=== PATIENT | female | born 1965 | race Caucasian/White ===

== ENCOUNTER → 2016-08-12 | Outpatient (CLI) | payer OTHER ==
[~2016-08-12] MED LIST: ADV250INH INH; BUTA50TA PO; CALC600T21 PO; COLA100C PO; FIORCAP3 PO; GASTROGRAFIN SOLUTION 30ML (Q9963) As Ordered ONE; ISOVUE-370 76% 100ML VIAL (Q9967) As Ordered ONE; LEVO50TA2 PO; NAPR500T2 PO; RECL5INJ2 IV; TOPI50TA PO; TYLE325T5 PO; VALI2TAB PO; VITA10002 PO; VITA200016 PO; alendronate PO; antivert PO; calcium PO; depo-provera IM; motrin PO; vicodin PO; vit; vit c PO; vitamin B-12 PO
--- NOTE | 2016-08-12 10:42 | REP ---
Clinical: Abdominal pain with inflammatory bowel disease. Technique: Axial contrast enhanced images from the lung bases to the pubic symphysis using oral and 100 ml Isovue 370 intravenous contrast material with precontrast images of the abdomen as well as coronal and sagittal re-formations. Comparison: 04/30/2014. Findings: Lung bases clear. Visualized heart and pericardium normal. Liver, spleen, pancreas, gallbladder, bilateral adrenal glands and kidneys are normal. The enteric system is grossly unremarkable and without obstruction or acute inflammatory process. Normal terminal ileum and appendix identified in the right lower quadrant. Pelvis demonstrates normal bladder and evidence for prior hysterectomy. Pelvic fluid or ascites. No intraperitoneal or retroperitoneal adenopathy. Abdominal aorta without aneurysm or dissection. Surrounding musculoskeletal structures are intact. Impression: No acute intra-abdominal or pelvic pathology appreciated. Signed by Rishi Shabazz MD 08/12/2016 10:34 A
== END ==
LOC: M RAD 07:59
PROVIDERS: ATTEND Physician Assistant Medical
DX: K58.9 Irritable bowel syndrome, unspecified (principal)

== ENCOUNTER → 2016-09-23 | Outpatient (CLI) | payer OTHER ==
[~2016-09-23] MED LIST changes: -GASTROGRAFIN SOLUTION 30ML (Q9963) As Ordered ONE; -ISOVUE-370 76% 100ML VIAL (Q9967) As Ordered ONE
[2016-09-23 13:42] LABS: BASO % 0.4 % (0.0-1.0); EOS # 0.2 K/mm3 (0.0-0.50); EOS % 3.8 % (0.0-3.0); LARGE UNSTAINED CELL # 0.1 K/mm3 (0.0-0.4); LARGE UNSTAINED CELL % 1.4 % (0.0-4.0); LYMPH # 1.8 K/mm3 (1.5-4.5); LYMPH % 39.4 % (24.0-44.0); MEAN CORPUSCULAR HEMOGLOBIN 31.6 pg (27.0-33.0); MEAN CORPUSCULAR VOLUME 92.9 fl (80.0-96.0); MONO # 0.3 K/mm3 (0.0-0.8); NEUTROPHILS # 2.2 K/mm3 (1.8-7.7); PLATELET COUNT, AUTOMATED 245 k/mm3 (150-450); RED CELL DISTRIBUTION WIDTH 12.2 % (11.5-14.5); WHITE BLOOD COUNT 4.4 K/mm3 (4.0-10.0)
[2016-09-23 13:52] LABS: ALBUMIN/GLOBULIN RATIO 1.43 (1.00-1.93); ALKALINE PHOSPHATASE 60 U/L (45-117); ALT/SGPT 24 U/L (12-78); ANION GAP 10 MEQ/L (8-16); AST/SGOT 17 U/L (15-37); BILIRUBIN,TOTAL 0.4 MG/DL (0.2-1.0); BLOOD UREA NITROGEN 13 MG/DL (7-18); CALCIUM LEVEL 8.8 MG/DL (8.5-10.1); CARBON DIOXIDE LEVEL 29 MEQ/L (21-32); CHLORIDE LEVEL 105 MEQ/L (98-107); CREATININE FOR GFR 0.67 MG/DL (0.55-1.02); FERRITIN 321 NG/ML (8-252); GLOMERULAR FILTRATION RATE > 60.0 (>51); GLUCOSE, FASTING 95 MG/DL (70-105); PERCENT SATURATION 37.8 % (13.2-37.4); POTASSIUM SERUM 4.2 MEQ/L (3.5-5.1); SODIUM LEVEL 144 MEQ/L (136-145); TOTAL IRON BINDING CAPACITY 294 UG/DL (250-450); TOTAL PROTEIN 6.8 GM/DL (6.4-8.2)
[2016-09-23 13:59] LABS: VITAMIN B12 LEVEL 740 PG/ML (247-911)
[2016-09-26 11:18] LABS: PRETREATED FOLATE FOR RBCFOL 8.5 NG/ML
== END ==
LOC: M WUC 11:38
PROVIDERS: ATTEND Family Medicine
DX: D51.9 Vitamin B12 deficiency anemia, unspecified (principal); E55.9 Vitamin D deficiency, unspecified

== ENCOUNTER 2016-11-02 07:39 | Emergency (ER) | payer OTHER ==
[~2016-11-02] VITALS: Ht 154.9 cm; Wt 47.2 kg
[~2016-11-02 07:39] MED LIST changes: -COLA100C PO; +COLA100C3 PO
[2016-11-02] MEDS ORDERED: SODIUM CHLORIDE 0.9% 1000 ML IV ONE (08:15)
[2016-11-02] MEDS ORDERED: ONDANSETRON 4MG/2ML VIAL (J2405) IV ONE (08:15)
[2016-11-02] MEDS ORDERED: MORPHINE 2 MG/ML 1ML SYRINGE IV PRN (08:15)
[2016-11-02 08:25] LABS: BASO % 0.7 % (0.0-1.0); EOS # 0.2 K/mm3 (0.0-0.50); EOS % 3.9 % (0.0-3.0); LARGE UNSTAINED CELL # 0.1 K/mm3 (0.0-0.4); LARGE UNSTAINED CELL % 2.4 % (0.0-4.0); LYMPH # 1.8 K/mm3 (1.5-4.5); LYMPH % 45.7 % (24.0-44.0); MEAN CORPUSCULAR HGB CONC 33.7 g/dl (32.0-36.5); MONO # 0.2 K/mm3 (0.0-0.8); MONO % 4.4 % (0.0-5.0); NEUTROPHILS # 1.7 K/mm3 (1.8-7.7); NEUTROPHILS % 42.9 % (36.0-66.0); PLATELET COUNT, AUTOMATED 263 k/mm3 (150-450); RED CELL DISTRIBUTION WIDTH 12.4 % (11.5-14.5); WHITE BLOOD COUNT 3.8 K/mm3 (4.0-10.0)
[2016-11-02 08:43] LABS: ALBUMIN/GLOBULIN RATIO 1.25 (1.00-1.93); ALKALINE PHOSPHATASE 54 U/L (45-117); ALT/SGPT 28 U/L (12-78); AMYLASE 66 U/L (25-115); ANION GAP 5 MEQ/L (8-16); AST/SGOT 20 U/L (15-37); BILIRUBIN,DIRECT 0.1 MG/DL (0.0-0.2); BILIRUBIN,TOTAL 0.5 MG/DL (0.2-1.0); BLOOD UREA NITROGEN 18 MG/DL (7-18); CALCIUM LEVEL 8.7 MG/DL (8.5-10.1); CARBON DIOXIDE LEVEL 30 MEQ/L (21-32); CHLORIDE LEVEL 108 MEQ/L (98-107); GLOMERULAR FILTRATION RATE > 60.0 (>51); GLUCOSE, FASTING 86 MG/DL (70-105); POTASSIUM SERUM 3.8 MEQ/L (3.5-5.1); SODIUM LEVEL 143 MEQ/L (136-145); TOTAL PROTEIN 7.2 GM/DL (6.4-8.2)
[2016-11-02] MEDS ORDERED: METOCLOPRAMIDE INJ 10MG/2ML VIAL (J2765) IV ONE (09:00)
[2016-11-02] MEDS ORDERED: ISOVUE-370 76% 100ML VIAL (Q9967) As Ordered ONE (09:26)
--- NOTE | 2016-11-02 09:55 | REP ---
Clinical: Acute abdominal pain. Technique: Axial contrast enhanced images from the lung bases to the pubic symphysis using 100 ml Isovue 370 intravenous contrast material with coronal and sagittal re-formations. Comparison: 08/12/2016. Findings: Lung bases clear. Visualized heart and pericardium normal. Liver, spleen, pancreas, gallbladder, bilateral adrenal glands and kidneys are normal the enteric system is without obstruction or acute inflammatory process pelvis demonstrates normal bladder and evidence for prior hysterectomy no free air. No free fluid. No adenopathy. Vasculature is normal. Musculoskeletal structures are intact. Impression: No acute intra-abdominal or pelvic pathology appreciated. Signed by Rishi Shabazz MD 11/02/2016 09:47 A
[2016-11-02] MEDS ORDERED: DICYCLOMINE INJ 20MG/2ML (J0500) IM ONE (10:30)
[2016-11-02 11:18] VITALS: BP 102/55
--- NOTE | 2016-11-03 21:21 | ECGEPIP ---
Stationary ECG Study [facility] - ED Test Date: 2016-11-02 Pat Name: ROBERT SOSA Department: Room: - Gender: F [employer]ovoltaic Panel Installer: lizeth : 1965 Requested By: Edwina Nuno Order Number: [id number] Reading MD: Edwina Nuno Measurements Intervals [place] Rate: 63 P: 68 TN: 145 QRS: 42 QRSD: 73 T: 67 QT: 395 QTc: 405 Interpretive Statements SINUS RHYTHM MINIMAL ST DEPRESSION LOW VOLTAGE LIMB DELAYED R PROGRESSION SIMILAR 06/08/15 Electronically Signed On 11-03-2016 21:21:11 EDT by Edwina Nuno
== END 2016-11-02 11:20 | disposition home or self-care (01) ==
LOC: M ED 08:27
DX: R10.9 Unspecified abdominal pain (principal); K58.9 Irritable bowel syndrome, unspecified; Z90.79 Acquired absence of other genital organ(s); Z88.8 Allergy status to other drugs, medicaments and biological substances
CPT/HCPCS: 74177; 80048; 80076; 82150; 83690; 85025; 93005; 96372; 96374; 96375; 99283; J0500; J2405; J2765; Q9967

== ENCOUNTER 2016-11-18 07:49 | Outpatient (CLI) | payer OTHER ==
[~2016-11-18] VITALS: Ht 154.9 cm; Wt 47.2 kg
[2016-11-18] MEDS ORDERED: ZOLEDRONIC ACID 5 MG in APPROPRIATE DILUENT 1 EA IV ONE (08:00)
[2016-11-18] MEDS ORDERED: BENT10CA PO (10:42)
== END 2016-11-18 08:40 | disposition home or self-care (01) ==
LOC: M INFU 07:49
PROVIDERS: ATTEND Family Medicine
DX: M85.80 Other specified disorders of bone density and structure, unspecified site (principal)
CPT/HCPCS: 96365; J3489

== ENCOUNTER → 2016-12-30 | Outpatient (REF) | payer OTHER ==
[~2016-12-30] MED LIST changes: +BENT10CA PO
== END ==
LOC: M LAB REF 16:13
PROVIDERS: ATTEND Physician Assistant
DX: J02.9 Acute pharyngitis, unspecified (principal)

== ENCOUNTER → 2017-02-09 | Outpatient (CLI) | payer OTHER ==
[~2017-02-09] MED LIST changes: -CALC600T21 PO; +CALC600T60 PO; -COLA100C3 PO; +COLA100C5 PO; -NAPR500T2 PO; +NAPR500T3 PO
[2017-02-09 08:11] LABS: BASO % 0.8 % (0.0-1.0); EOS # 0.1 K/mm3 (0.0-0.50); EOS % 2.6 % (0.0-3.0); LARGE UNSTAINED CELL # 0.1 K/mm3 (0.0-0.4); LARGE UNSTAINED CELL % 1.6 % (0.0-4.0); LYMPH # 1.8 K/mm3 (1.5-4.5); LYMPH % 41.9 % (24.0-44.0); MEAN CORPUSCULAR HEMOGLOBIN 29.9 pg (27.0-33.0); MEAN CORPUSCULAR HGB CONC 32.6 g/dl (32.0-36.5); MEAN CORPUSCULAR VOLUME 91.7 fl (80.0-96.0); MONO # 0.3 K/mm3 (0.0-0.8); MONO % 6.9 % (0.0-5.0); NEUTROPHILS # 1.9 K/mm3 (1.8-7.7); NEUTROPHILS % 46.2 % (36.0-66.0); PLATELET COUNT, AUTOMATED 245 k/mm3 (150-450); RED CELL DISTRIBUTION WIDTH 12.5 % (11.5-14.5); WHITE BLOOD COUNT 4.2 K/mm3 (4.0-10.0)
[2017-02-09 08:40] LABS: FREE T4 0.87 NG/DL (0.76-1.46)
== END ==
LOC: M LAB 07:16
PROVIDERS: ATTEND Family Medicine
DX: D51.9 Vitamin B12 deficiency anemia, unspecified (principal); E03.9 Hypothyroidism, unspecified

== ENCOUNTER → 2017-07-29 | Outpatient (CLI) | payer OTHER ==
[2017-07-29 14:58] LABS: VITAMIN B12 LEVEL 721 PG/ML
[2017-07-29 14:59] LABS: FREE T4 0.91 NG/DL (0.76-1.46)
== END ==
LOC: M LAB 13:58
DX: E04.2 Nontoxic multinodular goiter (principal); E55.9 Vitamin D deficiency, unspecified; D51.9 Vitamin B12 deficiency anemia, unspecified
CPT/HCPCS: 82746

== ENCOUNTER → 2017-10-27 | Outpatient (CLI) | payer OTHER ==
[2017-10-27 15:27] LABS: FREE T4 0.81 NG/DL (0.76-1.46); THYROID STIMULATING HORMONE 0.783 uIU/ML (0.358-3.740)
== END ==
LOC: M LAB 13:58
DX: E04.2 Nontoxic multinodular goiter (principal)
CPT/HCPCS: 84443

== ENCOUNTER → 2018-04-28 | Outpatient (CLI) | payer OTHER ==
[2018-04-28 16:47] LABS: CALCIUM LEVEL 9.2 MG/DL (8.5-10.1)
[2018-04-28 18:38] LABS: TOTAL 25(OH) VITAMIN D 76.1 NG/ML (30.0-100.0)
== END ==
LOC: M LAB 15:22
DX: E55.9 Vitamin D deficiency, unspecified (principal)

== ENCOUNTER → 2018-05-04 | Outpatient (CLI) | payer OTHER ==
[2018-05-04 16:53] LABS: FREE T4 0.93 NG/DL (0.76-1.46)
== END ==
LOC: M LAB 15:42
DX: E03.9 Hypothyroidism, unspecified (principal)

== ENCOUNTER → 2018-06-03 | Outpatient (CLI) | payer OTHER | LOC: M WHC 12:50 | DX: Z12.31 Encounter for screening mammogram for malignant neoplasm of breast (principal); Z78.0 Asymptomatic menopausal state; Z92.89 Personal history of other medical treatment | CPT/HCPCS: 77067 ==

== ENCOUNTER → 2018-06-08 | Outpatient (CLI) | payer OTHER ==
[2018-06-08 16:58] LABS: HEMATOCRIT 38.3 % (36.0-47.0); HEMOGLOBIN 12.9 g/dl (12.0-15.5); MEAN CORPUSCULAR HEMOGLOBIN 29.7 pg (27.0-33.0); MEAN CORPUSCULAR HGB CONC 33.7 g/dl (32.0-36.5); PLATELET COUNT, AUTOMATED 267 10^3/uL (150-450); RED BLOOD COUNT 4.35 10^6/uL (4.00-5.40); RED CELL DISTRIBUTION WIDTH 12.7 % (11.5-14.5); WHITE BLOOD COUNT 5.5 10^3/uL (4.0-10.0)
[2018-06-08 17:15] LABS: RHEUMATOID FACTOR QUANT < 10.0 IU/ML (<15.0)
[2018-06-08 17:15] LABS: C REACTIVE PROTEIN QUANTITATIV < 0.30 MG/DL (0.00-0.30)
[2018-06-08 19:21] LABS: ERYTHROCYTE SEDIMENTATION RATE 5 mm/hr (0-30)
[2018-06-10 14:50] LABS: ANTINUCLEAR ANTIBODIES DIRECT Negative (Negative); IgG P18 AB Absent (.); IgG P23 AB Absent (.); IgG P28 AB Absent (.); IgG P30 AB Absent (.); IgG P39 AB Absent (.); IgG P41 AB Absent (.); IgG P45 AB Absent (.); IgG P58 AB Absent (.); IgG P66 AB Absent (.); IgG P93 AB Absent (.); IgM P23 AB Absent (.); IgM P39 AB Absent (.); IgM P41 AB Absent (.); LYME IgG WB INTERPRETATION Negative (.); LYME IgM WB INTERPRETATION Negative (.)
== END ==
LOC: M LAB 16:11
DX: M16.12 Unilateral primary osteoarthritis, left hip (principal)
CPT/HCPCS: 86140

== ENCOUNTER → 2018-07-15 | Outpatient (CLI) | payer OTHER | LOC: M RAD 15:29 | DX: G43.009 Migraine without aura, not intractable, without status migrainosus (principal); G93.89 Other specified disorders of brain | CPT/HCPCS: 70551 ==

== ENCOUNTER → 2018-10-27 | Outpatient (CLI) | payer OTHER ==
[~2018-10-27] MED LIST changes: +NAPR-885 PO; -NAPR500T3 PO
[2018-10-27 06:54] LABS: BASO % 0.7 % (0.0-1.0); EOS # 0.2 10^3/uL (0.0-0.50); EOS % 3.5 % (0.0-3.0); HEMATOCRIT 41.3 % (36.0-47.0); HEMOGLOBIN 13.7 g/dl (12.0-15.5); LYMPH # 2.1 10^3/uL (1.5-4.5); LYMPH % 47.6 % (24.0-44.0); MEAN CORPUSCULAR HGB CONC 33.2 g/dl (32.0-36.5); MEAN CORPUSCULAR VOLUME 90.6 fl (80.0-96.0); MONO # 0.4 10^3/uL (0.0-0.8); MONO % 9.7 % (0.0-5.0); NEUTROPHILS # 1.7 10^3/uL (1.8-7.7); NEUTROPHILS % 38.3 % (36.0-66.0); PLATELET COUNT, AUTOMATED 266 10^3/uL (150-450); RED BLOOD COUNT 4.56 10^6/uL (4.00-5.40); WHITE BLOOD COUNT 4.3 10^3/uL (4.0-10.0)
[2018-10-27 07:27] LABS: ALT/SGPT 27 U/L (12-78); BILIRUBIN,TOTAL 0.5 MG/DL (0.2-1.0); BLOOD UREA NITROGEN 23 MG/DL (7-18); CALCIUM LEVEL 9.2 MG/DL (8.5-10.1); CARBON DIOXIDE LEVEL 30 MEQ/L (21-32); CHLORIDE LEVEL 108 MEQ/L (98-107); CHOLESTEROL LEVEL 193 MG/DL (<200); CHOLESTEROL RISK RATIO 2.757 (<5); CREATININE FOR GFR 0.77 MG/DL (0.55-1.30); FREE T4 1.03 NG/DL (0.76-1.46); GLOMERULAR FILTRATION RATE > 60.0 (>51); GLUCOSE, FASTING 79 MG/DL (70-100); HDL CHOLESTEROL 70 MG/DL (>40); LDL CHOLESTEROL 105 MG/DL (<100); NON-HDL-C 123 MG/DL; SODIUM LEVEL 143 MEQ/L (136-145); THYROID STIMULATING HORMONE 0.588 uIU/ML (0.358-3.740); TOTAL PROTEIN 6.9 GM/DL (6.4-8.2); TRIGLYCERIDES LEVEL 88 MG/DL (<150)
== END ==
LOC: M LAB 06:14
PROVIDERS: ATTEND Physician Assistant
DX: I10 Essential (primary) hypertension (principal); M81.0 Age-related osteoporosis without current pathological fracture; E03.9 Hypothyroidism, unspecified

== ENCOUNTER → 2018-10-27 | Outpatient (CLI) | payer OTHER ==
[2018-10-27 06:54] LABS: HEMATOCRIT 40.4 % (36.0-47.0); HEMOGLOBIN 13.5 g/dl (12.0-15.5); MEAN CORPUSCULAR HGB CONC 33.4 g/dl (32.0-36.5); MEAN CORPUSCULAR VOLUME 89.8 fl (80.0-96.0); PLATELET COUNT, AUTOMATED 267 10^3/uL (150-450); WHITE BLOOD COUNT 4.4 10^3/uL (4.0-10.0)
[2018-10-27 07:22] LABS: ALT/SGPT 28 U/L (12-78); BILIRUBIN,TOTAL 0.5 MG/DL (0.2-1.0); BLOOD UREA NITROGEN 23 MG/DL (7-18); CALCIUM LEVEL 9.3 MG/DL (8.5-10.1); CARBON DIOXIDE LEVEL 31 MEQ/L (21-32); CHLORIDE LEVEL 109 MEQ/L (98-107); CREATININE FOR GFR 0.74 MG/DL (0.55-1.30); GLOMERULAR FILTRATION RATE > 60.0 (>51); GLUCOSE, FASTING 85 MG/DL (70-100); SODIUM LEVEL 143 MEQ/L (136-145)
[2018-10-27 10:21] LABS: FOLATE 19.5 NG/ML; VITAMIN B12 LEVEL 1532 PG/ML
== END ==
LOC: M LAB 06:10
PROVIDERS: ATTEND Physician Assistant
DX: M54.81 Occipital neuralgia (principal)

== ENCOUNTER → 2019-02-09 | Outpatient (CLI) | payer OTHER ==
[~2019-02-09] MED LIST changes: +CYAN100049 PO; -VITA10002 PO
--- NOTE | 2019-02-10 09:10 | REP ---
MRI cervical spine without contrast: History: Occipital neuralgia. No comparison cervical spine imaging. Left-sided neck pain. Headaches. Technique: Sagittal and axial T1 and T2-weighted scans are acquired in the usual fashion with and without fat saturation. Sequences include spin echo, turbo spin-echo, and STIR imaging sequences. MRI findings: There is straightening of the normal cervical lordosis. Cervical vertebral body heights are preserved. Alignment is otherwise normal. Craniocervical junction is unremarkable. Cervical cord is normal in coarse caliber and signal intensity on T1 and T2-weighted scans. Axial and sagittal images taken at C2-3 level show no significant abnormality. At C3-4, there is minimal central disc bulging. No other finding. At C4-5, there is mild narrowing of the disc and minimal diffuse disc bulging effacing the ventral subarachnoid space. No cord compression is seen. No neural foraminal narrowing. At C5-6 there is disc space narrowing and posterior disc bulging. There is mild bilateral uncovertebral spurring, right greater than left. Right-sided neural foraminal narrowing is seen. No central canal stenosis is seen. At C6-7 there is degenerative disc narrowing as well. There is left-sided neural foraminal narrowing from uncovertebral spurring at C6-7. Diffuse disc bulging is noted. At C7-T1, there is a right paracentral disc bulge significant thecal sac compression. There is mild degenerative narrowing of the T3-4 disc in the upper thoracic spine without disc protrusion. Impression: Degenerative spondylosis changes most pronounced at C5-6 and C6-7. There is right C5-6 and left C6-7 neural foraminal encroachment from uncovertebral spurring. Electronically Signed by Pete Farias MD 02/10/2019 01:57 P
== END ==
LOC: M RAD 16:10
PROVIDERS: ATTEND Physician Assistant
DX: M54.81 Occipital neuralgia (principal); M47.812 Spondylosis without myelopathy or radiculopathy, cervical region; M50.21 Other cervical disc displacement, high cervical region; M50.222 Other cervical disc displacement at C5-C6 level; M50.221 Other cervical disc displacement at C4-C5 level; M50.223 Other cervical disc displacement at C6-C7 level

== ENCOUNTER → 2019-05-16 | Outpatient (CLI) | payer OTHER ==
[2019-05-16 08:14] LABS: BASO % 0.9 % (0.0-1.0); EOS # 0.1 10^3/uL (0.0-0.5); EOS % 2.3 % (0.0-3.0); HEMATOCRIT 40.3 % (36.0-47.0); HEMOGLOBIN 13.3 g/dl (12.0-15.5); LYMPH # 2.5 10^3/uL (1.5-5.0); LYMPH % 55.9 % (24.0-44.0); MEAN CORPUSCULAR HEMOGLOBIN 30.6 pg (27.0-33.0); MEAN CORPUSCULAR VOLUME 92.6 fl (80.0-96.0); MONO # 0.4 10^3/uL (0.0-0.8); NEUTROPHILS # 1.4 10^3/uL (1.5-8.5); NEUTROPHILS % 32.4 % (36.0-66.0); PLATELET COUNT, AUTOMATED 305 10^3/uL (150-450); RED BLOOD COUNT 4.35 10^6/uL (4.00-5.40); WHITE BLOOD COUNT 4.4 10^3/uL (4.0-10.0)
[2019-05-16 08:45] LABS: ALBUMIN 3.8 GM/DL (3.2-5.2); ALT/SGPT 42 U/L (12-78); BILIRUBIN,TOTAL 0.4 MG/DL (0.2-1.0); BLOOD UREA NITROGEN 19 MG/DL (7-18); CALCIUM LEVEL 9.2 MG/DL (8.5-10.1); CARBON DIOXIDE LEVEL 29 MEQ/L (21-32); CHLORIDE LEVEL 112 MEQ/L (98-107); CREATININE FOR GFR 0.91 MG/DL (0.55-1.30); FREE T4 0.83 NG/DL (0.76-1.46); GLOMERULAR FILTRATION RATE > 60.0 (>51); GLUCOSE, FASTING 67 MG/DL (70-100); POTASSIUM SERUM 3.8 MEQ/L (3.5-5.1); SODIUM LEVEL 145 MEQ/L (136-145); TOTAL PROTEIN 6.9 GM/DL (6.4-8.2)
== END ==
LOC: M LAB 06:57
PROVIDERS: ATTEND Physician Assistant
DX: E03.9 Hypothyroidism, unspecified (principal); G43.909 Migraine, unspecified, not intractable, without status migrainosus

== ENCOUNTER → 2019-06-13 | Outpatient (CLI) | payer OTHER ==
--- NOTE | 2019-06-13 17:16 | REP ---
Digital diagnostic bilateral mammography with CAD, 3-D tomography, and focused right breast sonography. History: Area of redness in the skin of the right breast with lump palpated by the referring provider. The skin discoloration is no longer present according to the patient. The patient is status post benign stereotactic needle biopsy of the rest right breast February 07, 2016. Comparison mammography June 03, 2018, February 07, 2016. Mammographic findings: There are scattered fibroglandular elements bilaterally. There is a marker clip adjacent to the some coarse calcifications in the 12 o'clock position of the right breast unchanged from June 03, 2018 prior study. No progressive change is seen. The skin marker denoting the palpable lump is in the vicinity of these calcifications and marker clip. They are unchanged. No abnormalities noted on the left. 3-D tomography shows no additional abnormality. Sonographic findings: Right breast is scanned from 7 o'clock to 9 o'clock. At 8 o'clock there is a hypoechoic lymph node 3.9 cm from the nipple measuring 6.6 mm in diameter. Mildly heterogeneous fibroglandular tissue is seen. No other sonographic finding. No spiculation architectural distortion is seen. Impression: BIRADS category II benign findings. Clinical follow-up is advised. Repeat screening mammography recommended 1 year. BIRADS 2: BI-RADS/ACR category 2 mammogram. Benign Findings. This mammogram was interpreted with the aid of an FDA-approved computer-aided detection system. The patient states she had a clinical breast exam in June 2019. The patient letter being requested is m2. This patient's estimated Tyrer-Cuzick lifetime risk assessment for the breast cancer is 7.6 %. Electronically Signed by Pete Farias MD 06/14/2019 09:26 A
== END ==
LOC: M RAD 13:36
PROVIDERS: ATTEND Nurse Practitioner Family
DX: N63.13 Unspecified lump in the right breast, lower outer quadrant (principal)

== ENCOUNTER → 2019-12-27 | Outpatient (CLI) | payer OTHER ==
[2019-12-27 07:15] LABS: FREE T4 0.9 NG/DL (0.76-1.46); THYROID STIMULATING HORMONE 1.78 uIU/ML (0.358-3.740)
== END ==
LOC: M LAB 06:07
PROVIDERS: ATTEND Family Medicine
DX: E03.9 Hypothyroidism, unspecified (principal)

== ENCOUNTER → 2020-01-31 | Outpatient (CLI) | payer OTHER ==
--- NOTE | 2020-01-31 09:15 | REP ---
Clinical: Trauma. Technique: AP, lateral, bilateral oblique views right foot . Findings: There is an oblique nondisplaced fracture involving the fourth proximal phalanx. Remainder examination is normal. Impression: Fracture at the fourth proximal phalanx with minimal angulation. Electronically Signed by Rishi Shabazz MD 01/31/2020 09:07 A
== END ==
LOC: M WUC 08:53
PROVIDERS: ATTEND Physician Assistant
DX: S92.514A Nondisplaced fracture of proximal phalanx of right lesser toe(s), initial encounter for closed fracture (principal); X58.XXXA Exposure to other specified factors, initial encounter; Y92.9 Unspecified place or not applicable

== ENCOUNTER → 2020-07-04 | Outpatient (CLI) | payer OTHER ==
--- NOTE | 2020-07-04 11:32 | REPMRS ---
Patient History The patient states she had a clinical breast exam in 07/22 Family history of prostate cancer at age 52 in maternal uncle. Benign stereotatic loc for ea lesion of the right breast, February 07, 2016. No Hormone Replacement Therapy Digital Woman Screen Mammo: July 04, 2020 - Exam #: [id number] Bilateral CC and MLO view(s) were taken. Technologist: Elina Wheeler, Technologist Prior study comparison: June 13, 2019, digital mammo diagnostic bilateral, performed at [facility]. June 03, 2018, bilateral digital woman screen mammo performed at [facility]. January 23, 2017, bilateral digital woman screen mammo, performed at [facility]. FINDINGS: There are scattered fibroglandular densities. The Volpara volumetric breast density category is:B. There is a grouping of benign macro calcifications adjacent to a needle biopsy marker clip in the right breast unchanged from multiple prior studies. There has been no change in the appearance of the mammogram from the prior studies. There is a mild amount of scattered fibroglandular density which is fairly symmetric. There is no interval development of dominant mass, architectural distortion, or grouped microcalcification suggestive of malignancy. 3-D tomosynthesis shows no additional findings. Assessment: BI-RADS/ACR category 2 mammogram. Benign Findings. Recommendation Routine screening mammogram of both breasts in 1 year (for women over age 40). This patient's [facility] Lifetime Breast Cancer Risk is estimated at 7.5 %. This mammogram was interpreted with the aid of an FDA-approved computer-aided dectection system. Electronically Signed By: Manohar Farias MD 07/04/20 [id number]
== END ==
LOC: M WHC 09:02
PROVIDERS: ATTEND Nurse Practitioner Family
DX: Z12.31 Encounter for screening mammogram for malignant neoplasm of breast (principal); Z80.42 Family history of malignant neoplasm of prostate

== ENCOUNTER → 2020-07-04 | Outpatient (CLI) | payer OTHER ==
[2020-07-04 07:01] LABS: CALCIUM LEVEL 8.9 MG/DL (8.5-10.1)
[2020-07-04 09:21] LABS: TOTAL 25(OH) VITAMIN D 91.4 NG/ML (30.0-100.0)
== END ==
LOC: M LAB 06:15
PROVIDERS: ATTEND Nurse Practitioner Family
DX: E55.9 Vitamin D deficiency, unspecified (principal); M81.0 Age-related osteoporosis without current pathological fracture

== ENCOUNTER → 2020-07-04 | Outpatient (CLI) | payer OTHER ==
[2020-07-04 06:46] LABS: BASO % 0.6 % (0.0-1.0); EOS # 0.1 10^3/uL (0.0-0.5); EOS % 2.1 % (0.0-3.0); HEMATOCRIT 42.5 % (36.0-47.0); LYMPH # 2.1 10^3/uL (1.5-5.0); LYMPH % 43.6 % (24.0-44.0); MEAN CORPUSCULAR HEMOGLOBIN 29.7 pg (27.0-33.0); MEAN CORPUSCULAR HGB CONC 32.9 g/dl (32.0-36.5); MEAN CORPUSCULAR VOLUME 90.2 fl (80.0-96.0); MONO # 0.4 10^3/uL (0.0-0.8); MONO % 8.4 % (0.0-5.0); NEUTROPHILS # 2.1 10^3/uL (1.5-8.5); NEUTROPHILS % 45.1 % (36.0-66.0); PLATELET COUNT, AUTOMATED 259 10^3/uL (150-450); RED BLOOD COUNT 4.71 10^6/uL (4.00-5.40); WHITE BLOOD COUNT 4.8 10^3/uL (4.0-10.0)
[2020-07-04 07:15] LABS: ALBUMIN 3.9 GM/DL (3.2-5.2); ALT/SGPT 27 U/L (12-78); BILIRUBIN,TOTAL 0.5 MG/DL (0.2-1.0); BLOOD UREA NITROGEN 16 MG/DL (7-18); CALCIUM LEVEL 9.2 MG/DL (8.5-10.1); CARBON DIOXIDE LEVEL 29 MEQ/L (21-32); CHLORIDE LEVEL 111 MEQ/L (98-107); CHOLESTEROL LEVEL 198 MG/DL (<200); CHOLESTEROL RISK RATIO 2.828 (<5); CREATININE FOR GFR 0.99 MG/DL (0.55-1.30); FREE T4 0.89 NG/DL (0.76-1.46); GLOMERULAR FILTRATION RATE > 60.0 (>51); GLUCOSE, FASTING 83 MG/DL (70-100); HDL CHOLESTEROL 70 MG/DL (>40); LDL CHOLESTEROL 105 MG/DL (<100); NON-HDL-C 128 MG/DL; SODIUM LEVEL 142 MEQ/L (136-145); TOTAL PROTEIN 7.2 GM/DL (6.4-8.2); TRIGLYCERIDES LEVEL 115 MG/DL (<150)
== END ==
LOC: M LAB 06:17
PROVIDERS: ATTEND Physician Assistant
DX: E03.9 Hypothyroidism, unspecified (principal); G43.909 Migraine, unspecified, not intractable, without status migrainosus

== ENCOUNTER → 2020-09-11 | Outpatient (CLI) | payer OTHER ==
[2020-09-11 10:53] LABS: BASO % 0.5 % (0.0-1.0); EOS # 0.2 10^3/uL (0.0-0.5); EOS % 2.6 % (0.0-3.0); HEMATOCRIT 42.6 % (36.0-47.0); HEMOGLOBIN 13.9 g/dl (12.0-15.5); LYMPH # 1.9 10^3/uL (1.5-5.0); LYMPH % 30.3 % (24.0-44.0); MEAN CORPUSCULAR HEMOGLOBIN 29.9 pg (27.0-33.0); MEAN CORPUSCULAR HGB CONC 32.6 g/dl (32.0-36.5); MEAN CORPUSCULAR VOLUME 91.6 fl (80.0-96.0); MONO # 0.5 10^3/uL (0.0-0.8); MONO % 7.3 % (0.0-5.0); NEUTROPHILS # 3.7 10^3/uL (1.5-8.5); NEUTROPHILS % 59.1 % (36.0-66.0); PLATELET COUNT, AUTOMATED 287 10^3/uL (150-450); RED BLOOD COUNT 4.65 10^6/uL (4.00-5.40); WHITE BLOOD COUNT 6.3 10^3/uL (4.0-10.0)
[2020-09-11 11:17] LABS: BLOOD UREA NITROGEN 17 MG/DL (7-18); CALCIUM LEVEL 9.6 MG/DL (8.5-10.1); CARBON DIOXIDE LEVEL 28 MEQ/L (21-32); CHLORIDE LEVEL 108 MEQ/L (98-107); CREATININE FOR GFR 0.82 MG/DL (0.55-1.30); GLOMERULAR FILTRATION RATE > 60.0 (>51); GLUCOSE, FASTING 85 MG/DL (70-100); POTASSIUM SERUM 4.6 MEQ/L (3.5-5.1); SODIUM LEVEL 143 MEQ/L (136-145)
--- NOTE | 2020-09-11 12:28 | REP ---
INDICATION: LOW BACK PAIN/ PT HAS LABS FIRST. Left flank pain. Question stone. COMPARISON: Comparison CT images November 02, 2016.. TECHNIQUE: Supine KUB. FINDINGS: Bowel gas pattern is unremarkable. There are surgical sutures bilaterally in the pelvis. Psoas margins and flank stripes are intact. No mass, organomegaly, or pathologic calcification is seen. There are phleboliths in the pelvis. There are calcifications adjacent to the greater trochanters bilaterally consistent with calcific tendinitis or bursitis at the hips. No bony destructive lesion. IMPRESSION: Postsurgical changes in the pelvis. Thalia trochanteric soft tissue calcifications bilaterally at the hips. No radiographic evidence of urinary tract calculus. <Electronically signed by Manohar Farias > 09/11/20 [id number]
== END ==
LOC: M LAB 09:57
PROVIDERS: ATTEND Nurse Practitioner Family
DX: M50.10 Cervical disc disorder with radiculopathy, unspecified cervical region (principal); M54.5 Low back pain

== ENCOUNTER → 2020-10-12 | Outpatient (CLI) | payer OTHER ==
[2020-10-12 10:53] LABS: BASO % 0.7 % (0.0-1.0); EOS # 0.2 10^3/uL (0.0-0.5); EOS % 3.8 % (0.0-3.0); LYMPH # 1.6 10^3/uL (1.5-5.0); LYMPH % 29.7 % (24.0-44.0); MONO # 0.6 10^3/uL (0.0-0.8); MONO % 10.1 % (2.0-8.0); NEUTROPHILS # 3.1 10^3/uL (1.5-8.5); NEUTROPHILS % 55.3 % (36.0-66.0); WHITE BLOOD COUNT 5.5 10^3/uL (4.0-10.0)
== END ==
LOC: M LAB 09:17
PROVIDERS: ATTEND Physical Medicine & Rehabilitation
DX: M47.892 Other spondylosis, cervical region (principal)

== ENCOUNTER → 2020-11-09 | Outpatient (CLI) | payer OTHER ==
--- NOTE | 2020-11-09 09:17 | REP ---
INDICATION: SPONDYLOSIS, C REGION. COMPARISON: MR cervical spine 07/18/2017. TECHNIQUE: Sagittal MR images of the cervical spine include T1, T2, and STIR images. Axial T1 and T2 weighted images are obtained. FINDINGS: On the sagittal T2 weighted imaging, there is ijve-gf-nmxzjxpw multilevel degenerative disc disease with loss of disc height and disc desiccation seen diffusely throughout the cervical spine. Vertebral heights are overall preserved. No edi malalignments. Craniovertebral junction is unremarkable. Disc osteophyte complexes at the C4-5, C5-6, and C6-7 levels minimally indent the anterior thecal sac without evidence of cord impingement or cord compression. Cervical cord appears normal in its course, caliber and signal characteristics. On the review of axial images, At C2-3: No significant canal or foraminal narrowing. At C3-4: No significant canal or foraminal narrowing. At C4-5: Disc-osteophyte complex with injq-cw-nsipnire canal narrowing and smfq-gj-kqelgsss bilateral foraminal narrowing. At C5-6: Disc-osteophyte complex with ldyo-fw-ssrayina canal narrowing and hldi-lk-hviqawoh bilateral foraminal narrowing. At C6-7: Disc-osteophyte complex is eccentric to the left with moderate left foraminal narrowing, moderate canal narrowing and mild right foraminal narrowing. At C7-T1: No significant canal or foraminal narrowing. When compared to prior study of 2017, no gross changes. IMPRESSION: 1. Nrig-rh-cqawyemf multilevel degenerative disc disease. 2. Disc-osteophyte complex formation at C4-5, C5-6 and C6-7 levels indenting the anterior thecal sac without evidence of cord impingement or cord compression. No disc herniation identified. 3. Jfgk-uo-oxothwqg multilevel degenerative foraminal narrowing as described appears greater at C6-7 level on the left. <Electronically signed by Codey Munson > 11/09/20 [id number]
== END ==
LOC: M PLARAD 07:43
PROVIDERS: ATTEND Physical Medicine & Rehabilitation
DX: M47.892 Other spondylosis, cervical region (principal)

== ENCOUNTER → 2021-07-12 | Outpatient (CLI) | payer OTHER ==
[2021-07-12 15:37] LABS: APPEARANCE, URINE CLOUDY (CLEAR); BACTERIA, URINE AUTO NEGATIVE (NEGATIVE); BILIRUBIN, URINE AUTO NEGATIVE (NEGATIVE); BLOOD, URINE BLOOD NEGATIVE (NEGATIVE); CALCIUM OXALATE CRYSTALS MODERATE; COLOR, URINE YELLOW (YELLOW); GLUCOSE, URINE (UA) AUTO NEGATIVE (NEGATIVE); KETONE, URINE AUTO TRACE mg/dL (NEGATIVE); LEUKOCYTE ESTERASE, URINE AUTO TRACE (NEGATIVE); MUCUS, URINE SMALL (NEGATIVE); NITRITE, URINE AUTO NEGATIVE (NEGATIVE); PROTEIN, URINE AUTO 1+ mg/dL (NEGATIVE); RBC, URINE AUTO 1 /HPF (0-3); SQUAMOUS EPITHELIAL CELL UR AU 1 /HPF (0-6); UROBILINOGEN, URINE AUTO 0.2 mg/dL (0.0-2.0); WBC, URINE AUTO 9 /HPF (0-3)
== END ==
LOC: M PLALAB 13:57
PROVIDERS: ATTEND Advanced Practice Midwife
DX: R82.90 Unspecified abnormal findings in urine (principal)

== ENCOUNTER → 2021-07-30 | Outpatient (CLI) | payer OTHER ==
[2021-07-30 07:28] LABS: ALBUMIN 3.6 GM/DL (3.2-5.2); ALT/SGPT 28 U/L (12-78); BILIRUBIN,TOTAL 0.3 MG/DL (0.2-1.0); BLOOD UREA NITROGEN 18 MG/DL (7-18); CALCIUM LEVEL 8.7 MG/DL (8.5-10.1); CARBON DIOXIDE LEVEL 29 MEQ/L (21-32); CHLORIDE LEVEL 110 MEQ/L (98-107); CHOLESTEROL LEVEL 225 MG/DL (<200); CHOLESTEROL RISK RATIO 3.571 (<5); CREATININE FOR GFR 0.81 MG/DL (0.55-1.30); FREE T4 0.92 NG/DL (0.76-1.46); GLOMERULAR FILTRATION RATE > 60.0 (>51); GLUCOSE, FASTING 85 MG/DL (70-100); HDL CHOLESTEROL 63 MG/DL (>40); LDL CHOLESTEROL 136 MG/DL (<100); NON-HDL-C 162 MG/DL; SODIUM LEVEL 144 MEQ/L (136-145); THYROID STIMULATING HORMONE 0.871 uIU/ML (0.358-3.740); TOTAL PROTEIN 6.6 GM/DL (6.4-8.2); TRIGLYCERIDES LEVEL 128 MG/DL (<150)
== END ==
LOC: M LAB 06:33
PROVIDERS: ATTEND Nurse Practitioner Family
DX: E03.9 Hypothyroidism, unspecified (principal)

== ENCOUNTER → 2021-08-08 | Outpatient (CLI) | payer OTHER | LOC: M WHC 14:21 | PROVIDERS: ATTEND Nurse Practitioner Women's Health | DX: Z12.31 Encounter for screening mammogram for malignant neoplasm of breast (principal) ==

== ENCOUNTER → 2021-08-08 | Outpatient (REF) | payer OTHER | LOC: M SFHCWAGY 17:11 | PROVIDERS: ATTEND Nurse Practitioner Women's Health | DX: Z12.4 Encounter for screening for malignant neoplasm of cervix (principal) ==

== ENCOUNTER → 2022-02-05 | Outpatient (CLI) | payer OTHER ==
[2022-02-05 11:14] LABS: FREE T4 0.89 NG/DL (0.76-1.46); THYROID STIMULATING HORMONE 1.35 uIU/ML (0.358-3.740)
== END ==
LOC: M LAB 09:52
PROVIDERS: ATTEND Nurse Practitioner Family
DX: E03.9 Hypothyroidism, unspecified (principal)

== ENCOUNTER → 2022-02-10 | Outpatient (CLI) | payer OTHER ==
[2022-02-10 09:17] LABS: PLATELET COUNT, AUTOMATED 247 10^3/uL (150-450)
[2022-02-10 09:51] LABS: HCG, SERUM QUALITATIVE NEGATIVE (NEGATIVE)
[2022-02-10 10:07] LABS: INR 0.9; PROTHROMBIN TIME 12.5 SECONDS (12.7-14.5)
[2022-02-10 10:08] LABS: PARTIAL THROMBOPLASTIN TIME 29.8 SECONDS (25.9-37.0)
[2022-02-10 10:14] LABS: COLLAGEN EPINEPHRINE 96 SECONDS (74-162)
== END ==
LOC: M LAB 08:17
PROVIDERS: ATTEND Physician Assistant Surgical
DX: M47.896 Other spondylosis, lumbar region (principal)

== ENCOUNTER → 2022-02-13 | Outpatient (CLI) | payer OTHER ==
[2022-02-13 10:28] LABS: BASO % 0.6 % (0.0-1.0); EOS # 0.1 10^3/uL (0.0-0.5); EOS % 2.4 % (0.0-3.0); HEMATOCRIT 38.4 % (36.0-47.0); HEMOGLOBIN 12.7 g/dl (12.0-15.5); LYMPH # 2.1 10^3/uL (1.5-5.0); LYMPH % 42.6 % (24.0-44.0); MEAN CORPUSCULAR HEMOGLOBIN 30.2 pg (27.0-33.0); MEAN CORPUSCULAR HGB CONC 33.1 g/dl (32.0-36.5); MEAN CORPUSCULAR VOLUME 91.2 fl (80.0-96.0); MONO # 0.4 10^3/uL (0.0-0.8); MONO % 8.8 % (2.0-8.0); NEUTROPHILS # 2.2 10^3/uL (1.5-8.5); NEUTROPHILS % 45.4 % (36.0-66.0); PLATELET COUNT, AUTOMATED 255 10^3/uL (150-450); RED BLOOD COUNT 4.21 10^6/uL (4.00-5.40); WHITE BLOOD COUNT 4.9 10^3/uL (4.0-10.0)
[2022-02-13 11:38] LABS: ALBUMIN 3.7 GM/DL (3.2-5.2); ALT/SGPT 23 U/L (12-78); BILIRUBIN,TOTAL 0.4 MG/DL (0.2-1.0); BLOOD UREA NITROGEN 20 MG/DL (7-18); CALCIUM LEVEL 9.3 MG/DL (8.5-10.1); CARBON DIOXIDE LEVEL 25 MEQ/L (21-32); CHLORIDE LEVEL 111 MEQ/L (98-107); CREATININE FOR GFR 0.83 MG/DL (0.55-1.30); FERRITIN 251 NG/ML (8-252); GLOMERULAR FILTRATION RATE > 60.0 (>51); GLUCOSE, FASTING 75 MG/DL (70-100); IRON (FE) 130 UG/DL (50-170); PERCENT SATURATION 43.6 % (13.2-45.0); POTASSIUM SERUM 4.6 MEQ/L (3.5-5.1); SODIUM LEVEL 144 MEQ/L (136-145); TOTAL IRON BINDING CAPACITY 298 UG/DL (250-450); TOTAL PROTEIN 6.5 GM/DL (6.4-8.2)
[2022-02-13 12:41] LABS: TOTAL 25(OH) VITAMIN D 68.9 NG/ML (30.0-100.0)
[2022-02-13 12:42] LABS: FOLATE 15.3 NG/ML; VITAMIN B12 LEVEL 1007 PG/ML
== END ==
LOC: M LAB 09:57
PROVIDERS: ATTEND Nurse Practitioner Family
DX: R53.83 Other fatigue (principal)

== ENCOUNTER → 2022-04-08 | Outpatient (CLI) | payer OTHER ==
[2022-04-08 09:58] LABS: BASO % 0.8 % (0.0-1.0); EOS # 0.1 10^3/uL (0.0-0.5); EOS % 3.3 % (0.0-3.0); HEMATOCRIT 40.8 % (36.0-47.0); HEMOGLOBIN 13.5 g/dl (12.0-15.5); LYMPH # 1.7 10^3/uL (1.5-5.0); LYMPH % 42.3 % (24.0-44.0); MEAN CORPUSCULAR HEMOGLOBIN 30.3 pg (27.0-33.0); MEAN CORPUSCULAR HGB CONC 33.1 g/dl (32.0-36.5); MEAN CORPUSCULAR VOLUME 91.7 fl (80.0-96.0); MONO # 0.4 10^3/uL (0.0-0.8); MONO % 8.9 % (2.0-8.0); NEUTROPHILS # 1.8 10^3/uL (1.5-8.5); NEUTROPHILS % 44.4 % (36.0-66.0); PLATELET COUNT, AUTOMATED 270 10^3/uL (150-450); RED BLOOD COUNT 4.45 10^6/uL (4.00-5.40)
[2022-04-08 10:32] LABS: C REACTIVE PROTEIN QUANTITATIV < 0.30 MG/DL (0.00-0.30); RHEUMATOID FACTOR QUANT < 10.0 IU/ML (<15.0); URIC ACID 3.9 MG/DL (2.6-6.0)
[2022-04-08 10:34] LABS: ERYTHROCYTE SEDIMENTATION RATE 3 mm/hr (0-30)
== END ==
LOC: M LAB 09:14
PROVIDERS: ATTEND Physician Assistant Surgical
DX: M51.16 Intervertebral disc disorders with radiculopathy, lumbar region (principal)

== ENCOUNTER → 2022-04-25 | Outpatient (CLI) | payer OTHER | LOC: M RAD 07:26 | PROVIDERS: ATTEND Physician Assistant | DX: S63.613A Unspecified sprain of left middle finger, initial encounter (principal); W18.30XA Fall on same level, unspecified, initial encounter; Y92.009 Unspecified place in unspecified non-institutional (private) residence as the place of occurrence of the external cause ==

== ENCOUNTER → 2022-05-16 | Outpatient (CLI) | payer OTHER | LOC: M PLAIMG 07:20 | PROVIDERS: ATTEND Physician Assistant Surgical | DX: M51.16 Intervertebral disc disorders with radiculopathy, lumbar region (principal) ==

== ENCOUNTER → 2022-06-09 | Outpatient (CLI) | payer OTHER | LOC: M WHC 15:35 | PROVIDERS: ATTEND Internal Medicine Endocrinology, Diabetes & Metabolism | DX: M81.0 Age-related osteoporosis without current pathological fracture (principal) ==

== ENCOUNTER → 2022-08-11 | Outpatient (CLI) | payer OTHER ==
[2022-08-11 07:50] LABS: ALBUMIN 3.8 G/DL (3.2-5.2); ALKALINE PHOSPHATASE 69 U/L (46-116); ALT/SGPT 23 U/L (7.0-40); AST/SGOT 21 U/L (<34); BILIRUBIN,TOTAL 0.4 MG/DL (0.3-1.2); BLOOD UREA NITROGEN 20 MG/DL (9-23); CALCIUM LEVEL 9.5 MG/DL (8.5-10.1); CARBON DIOXIDE LEVEL 29 MMOL/L (20-31); CHLORIDE LEVEL 109 MMOL/L (98-107); CHOLESTEROL LEVEL 228 MG/DL (<200); CHOLESTEROL RISK RATIO 3.39 (<5); CREATININE FOR GFR 0.94 MG/DL (0.55-1.30); GLOMERULAR FILTRATION RATE > 60.0 (>51); GLUCOSE, FASTING 82 MG/DL (60-100); HDL CHOLESTEROL 67.2 MG/DL (>40); LDL CHOLESTEROL 139.4 MG/DL (<100); NON-HDL-C 161 MG/DL; POTASSIUM SERUM 4.5 MMOL/L (3.5-5.1); SODIUM LEVEL 144 MMOL/L (136-145); TOTAL PROTEIN 6.6 G/DL (5.7-8.2); TRIGLYCERIDES LEVEL 107 MG/DL (<150)
[2022-08-11 07:52] LABS: THYROID STIMULATING HORMONE 2.623 uIU/ML (0.55-4.78)
== END ==
LOC: M LAB 06:21
PROVIDERS: ATTEND Nurse Practitioner Family
DX: E03.9 Hypothyroidism, unspecified (principal)

== ENCOUNTER → 2022-09-17 | Outpatient (CLI) | payer OTHER ==
[2022-09-17 09:38] LABS: CALCIUM LEVEL 9.3 MG/DL (8.5-10.1)
[2022-09-17 09:42] LABS: TOTAL 25(OH) VITAMIN D 52.9 NG/ML (20.0-100.0)
== END ==
LOC: M LAB 08:32
PROVIDERS: ATTEND Nurse Practitioner Family
DX: M81.0 Age-related osteoporosis without current pathological fracture (principal)

== ENCOUNTER → 2022-10-17 | Outpatient (CLI) | payer OTHER ==
[2022-10-17 10:03] LABS: BASO % 0.6 % (0.0-1.0); EOS # 0.1 10^3/uL (0.0-0.5); EOS % 2.1 % (0.0-3.0); HEMATOCRIT 41.8 % (36.0-47.0); HEMOGLOBIN 13.8 g/dl (12.0-15.5); LYMPH # 0.7 10^3/uL (1.5-5.0); LYMPH % 13.7 % (24.0-44.0); MEAN CORPUSCULAR HEMOGLOBIN 30.3 pg (27.0-33.0); MEAN CORPUSCULAR VOLUME 91.9 fl (80.0-96.0); MONO # 0.7 10^3/uL (0.0-0.8); MONO % 12.2 % (2.0-8.0); NEUTROPHILS # 3.8 10^3/uL (1.5-8.5); NEUTROPHILS % 71.2 % (36.0-66.0); PLATELET COUNT, AUTOMATED 246 10^3/uL (150-450); RED BLOOD COUNT 4.55 10^6/uL (4.00-5.40); WHITE BLOOD COUNT 5.3 10^3/uL (4.0-10.0)
[2022-10-17 10:35] LABS: LIPASE 25 U/L (12-53)
[2022-10-17 10:38] LABS: ALBUMIN 3.7 G/DL (3.2-5.2); ALKALINE PHOSPHATASE 76 U/L (46-116); ALT/SGPT 33 U/L (7.0-40); AST/SGOT 28 U/L (<34); BILIRUBIN,TOTAL 0.2 MG/DL (0.3-1.2); BLOOD UREA NITROGEN 14 MG/DL (9-23); CALCIUM LEVEL 9.2 MG/DL (8.5-10.1); CARBON DIOXIDE LEVEL 29 MMOL/L (20-31); CHLORIDE LEVEL 109 MMOL/L (98-107); CREATININE FOR GFR 0.87 MG/DL (0.55-1.30); GLOMERULAR FILTRATION RATE > 60.0 (>51); GLUCOSE, FASTING 78 MG/DL (60-100); POTASSIUM SERUM 4.5 MMOL/L (3.5-5.1); SODIUM LEVEL 141 MMOL/L (136-145); TOTAL PROTEIN 6.5 G/DL (5.7-8.2)
== END ==
LOC: M LAB 09:27
PROVIDERS: ATTEND Nurse Practitioner Family
DX: R07.9 Chest pain, unspecified (principal)

== ENCOUNTER → 2022-10-22 | Outpatient (CLI) | payer OTHER | LOC: M RAD 15:40 | PROVIDERS: ATTEND Nurse Practitioner Family | DX: J20.9 Acute bronchitis, unspecified (principal) ==

== ENCOUNTER → 2022-11-12 | Outpatient (CLI) | payer OTHER | LOC: M WHC 11:19 | PROVIDERS: ATTEND Advanced Practice Midwife | DX: Z12.31 Encounter for screening mammogram for malignant neoplasm of breast (principal) ==

== ENCOUNTER → 2023-01-13 | Outpatient (CLI) | payer OTHER | LOC: M RAD 06:41 | PROVIDERS: ATTEND Orthopaedic Surgery | DX: M54.2 Cervicalgia (principal) ==

== ENCOUNTER 2023-02-04 08:47 | Emergency (ER) | payer OTHER ==
[~2023-02-04] VITALS: Ht 154.9 cm; Wt 58.2 kg
[2023-02-04] MEDS ORDERED: PREG150C (08:57)
[2023-02-04] MEDS ORDERED: IBUP-1022 PO (08:57)
[2023-02-04] MEDS ORDERED: KETOROLAC 30 MG/ML 1ML VIAL IM ONE (10:00)
[2023-02-04] MEDS ORDERED: LIDOCAINE 5% (LIDODERM) PATCH TD ONE (10:00)
[2023-02-04] MEDS ORDERED: diazePAM 5MG TABLET PO ONE (10:00)
[2023-02-04] MEDS ORDERED: KETO10TAB PO (11:07)
[2023-02-04] MEDS ORDERED: LIDO5DIS41 TD (11:07)
[2023-02-04] MEDS ORDERED: BACL10TA2 PO (11:07)
[2023-02-04 11:18] VITALS: BP 104/59; TEMP 97.9; O2SAT 98
== END 2023-02-04 11:36 | disposition home or self-care (01) ==
LOC: M ED 08:47
DX: S33.5XXA Sprain of ligaments of lumbar spine, initial encounter (principal); X50.0XXA Overexertion from strenuous movement or load, initial encounter; Y92.89 Other specified places as the place of occurrence of the external cause; Y93.89 Activity, other specified; Y99.8 Other external cause status; M54.2 Cervicalgia; E03.9 Hypothyroidism, unspecified; Z88.8 Allergy status to other drugs, medicaments and biological substances; Z79.899 Other long term (current) drug therapy
CPT/HCPCS: 72110; 96372; 99283; J1885

== ENCOUNTER → 2023-05-28 | Outpatient (REF) | payer OTHER ==
[~2023-05-28] MED LIST changes: +BACL10TA2 PO; +IBUP-1022 PO; +KETO10TAB PO; +LIDO5DIS41 TD; +PREG150C2
== END ==
LOC: M SFHCWAGY 17:19
PROVIDERS: ATTEND Nurse Practitioner Family
DX: N39.0 Urinary tract infection, site not specified (principal)

== ENCOUNTER → 2023-09-24 | Outpatient (CLI) | payer OTHER ==
[2023-09-24 08:32] LABS: ALBUMIN 3.8 G/DL (3.2-5.2); ALKALINE PHOSPHATASE 66 U/L (46-116); ALT/SGPT 30 U/L (7.0-40); AST/SGOT 21 U/L (<34); BILIRUBIN,TOTAL 0.6 MG/DL (0.3-1.2); BLOOD UREA NITROGEN 18 MG/DL (9-23); CALCIUM LEVEL 9.1 MG/DL (8.5-10.1); CARBON DIOXIDE LEVEL 28 MMOL/L (20-31); CHLORIDE LEVEL 107 MMOL/L (98-107); CHOLESTEROL LEVEL 243 MG/DL (<200); CHOLESTEROL RISK RATIO 3.91 (<5); CREATININE FOR GFR 0.85 MG/DL (0.55-1.30); GLOMERULAR FILTRATION RATE > 60.0 (>51); GLUCOSE, FASTING 78 MG/DL (60-100); LDL CHOLESTEROL 149.6 MG/DL (<100); POTASSIUM SERUM 4.1 MMOL/L (3.5-5.1); SODIUM LEVEL 139 MMOL/L (136-145); THYROID STIMULATING HORMONE 2.135 uIU/ML (0.55-4.78); TOTAL PROTEIN 6.6 G/DL (5.7-8.2); TRIGLYCERIDES LEVEL 157 MG/DL (<150)
[2023-09-24 08:33] LABS: FREE T4 0.95 NG/DL (0.89-1.76)
[2023-09-24 11:28] LABS: TOTAL 25(OH) VITAMIN D 66.1 NG/ML (20.0-100.0)
== END ==
LOC: M LAB 06:17
PROVIDERS: ATTEND Nurse Practitioner Family
DX: E03.9 Hypothyroidism, unspecified (principal)

== ENCOUNTER → 2023-10-07 | Outpatient (CLI) | payer OTHER | LOC: M PLAIMG 15:34 | PROVIDERS: ATTEND Nurse Practitioner Family | DX: M25.532 Pain in left wrist (principal) ==

== ENCOUNTER → 2023-11-17 | Outpatient (CLI) | payer OTHER | LOC: M WHC 08:55 | PROVIDERS: ATTEND Nurse Practitioner Family | DX: Z12.31 Encounter for screening mammogram for malignant neoplasm of breast (principal) ==

== ENCOUNTER → 2024-01-25 | Outpatient (CLI) | payer OTHER | LOC: M RAD 01-20 10:43 | PROVIDERS: ATTEND Nurse Practitioner Family | DX: M51.16 Intervertebral disc disorders with radiculopathy, lumbar region (principal) ==

== ENCOUNTER → 2024-01-26 | Outpatient (CLI) | payer OTHER ==
[2024-01-26 11:06] LABS: BASO % 0.5 % (0.0-1.0); EOS # 0.1 10^3/uL (0.0-0.5); EOS % 2.1 % (0.0-3.0); HEMATOCRIT 41.6 % (36.0-47.0); LYMPH # 1.9 10^3/uL (1.5-5.0); LYMPH % 33.6 % (24.0-44.0); MEAN CORPUSCULAR HEMOGLOBIN 30.7 pg (27.0-33.0); MEAN CORPUSCULAR HGB CONC 33.7 g/dl (32.0-36.5); MEAN CORPUSCULAR VOLUME 91.2 fl (80.0-96.0); MONO # 0.5 10^3/uL (0.0-0.8); MONO % 8.3 % (2.0-8.0); NEUTROPHILS # 3.1 10^3/uL (1.5-8.5); NEUTROPHILS % 55.3 % (36.0-66.0); PLATELET COUNT, AUTOMATED 262 10^3/uL (150-450); RED BLOOD COUNT 4.56 10^6/uL (4.00-5.40); WHITE BLOOD COUNT 5.7 10^3/uL (4.0-10.0)
[2024-01-26 11:20] LABS: ERYTHROCYTE SEDIMENTATION RATE 4 mm/hr (0-30)
[2024-01-26 11:34] LABS: C REACTIVE PROTEIN QUANTITATIV < 0.40 MG/DL (<1.0)
[2024-01-26 11:35] LABS: CPK CREATINE PHOSPHOKINASE 111 U/L (34-145)
[2024-01-26 11:36] LABS: ALBUMIN 3.9 G/DL (3.2-5.2); ALKALINE PHOSPHATASE 75 U/L (46-116); ALT/SGPT 21 U/L (7.0-40); AST/SGOT 13 U/L (<34); BILIRUBIN,TOTAL 0.5 MG/DL (0.3-1.2); BLOOD UREA NITROGEN 16 MG/DL (9-23); CALCIUM LEVEL 9.7 MG/DL (8.5-10.1); CARBON DIOXIDE LEVEL 28 MMOL/L (20-31); CHLORIDE LEVEL 108 MMOL/L (98-107); CREATININE FOR GFR 0.83 MG/DL (0.55-1.30); GLOMERULAR FILTRATION RATE > 60.0 (>51); GLUCOSE, FASTING 81 MG/DL (60-100); MAGNESIUM LEVEL 1.8 MG/DL (1.8-2.4); POTASSIUM SERUM 4.5 MMOL/L (3.5-5.1); RHEUMATOID FACTOR QUANT < 3.5 IU/ML (<14); SODIUM LEVEL 142 MMOL/L (136-145); TOTAL PROTEIN 6.8 G/DL (5.7-8.2)
[2024-01-27 13:02] LABS: ANA PATTERN Nuclear, Speckled (NEGATIVE); ANA SCREEN, IFA POSITIVE (NEGATIVE)
[2024-01-27 16:17] LABS: SSA SJOGRENS A <1.0 NEG AI (<1.0 NEG); SSB SJOGRENS B <1.0 NEG AI (<1.0 NEG)
== END ==
LOC: M RAD 09:44
PROVIDERS: ATTEND Nurse Practitioner Family
DX: M79.601 Pain in right arm (principal)

== ENCOUNTER → 2024-02-03 | Outpatient (CLI) | payer OTHER | LOC: M RAD 14:45 | PROVIDERS: ATTEND Nurse Practitioner Family | DX: M79.661 Pain in right lower leg (principal) ==

== ENCOUNTER → 2024-05-31 | Outpatient (CLI) | payer OTHER | LOC: M WHC 10:12 | PROVIDERS: ATTEND Nurse Practitioner Family | DX: M81.0 Age-related osteoporosis without current pathological fracture (principal) ==

== ENCOUNTER → 2024-10-25 | Outpatient (CLI) | payer OTHER ==
[~2024-10-25] MED LIST changes: -ADV250INH INH; +ADVA1AER9 INH
[2024-10-25 07:41] LABS: THYROID STIMULATING HORMONE 1.988 uIU/ML (0.55-4.78)
[2024-10-25 07:42] LABS: ALBUMIN 3.9 G/DL (3.2-5.2); ALKALINE PHOSPHATASE 55 U/L (35-104); ALT/SGPT 24 U/L (7.0-40); AST/SGOT 20 U/L (<34); BILIRUBIN,TOTAL 0.4 MG/DL (0.3-1.2); BLOOD UREA NITROGEN 22 MG/DL (9-23); CALCIUM LEVEL 9.6 MG/DL (8.5-10.1); CARBON DIOXIDE LEVEL 28 MMOL/L (20-31); CHLORIDE LEVEL 111 MMOL/L (98-107); CHOLESTEROL LEVEL 199 MG/DL (<200); CHOLESTEROL RISK RATIO 3.23 (<5); CREATININE FOR GFR 0.95 MG/DL (0.55-1.30); FREE T4 1.03 NG/DL (0.89-1.76); GLOMERULAR FILTRATION RATE > 60.0 (>51); GLUCOSE, FASTING 79 MG/DL (60-100); HDL CHOLESTEROL 61.6 MG/DL (>40); LDL CHOLESTEROL 114.8 MG/DL (<100); NON-HDL-C 137.4 MG/DL; POTASSIUM SERUM 4.2 MMOL/L (3.5-5.1); SODIUM LEVEL 146 MMOL/L (136-145); TOTAL PROTEIN 6.6 G/DL (5.7-8.2); TRIGLYCERIDES LEVEL 113 MG/DL (<150)
== END ==
LOC: M LAB 06:18
PROVIDERS: ATTEND Nurse Practitioner Family
DX: E03.9 Hypothyroidism, unspecified (principal)

== ENCOUNTER → 2025-04-12 | Outpatient (CLI) | payer OTHER ==
[~2025-04-12] MED LIST changes: -IBUP-1022 PO; +IBUP600T42 PO; +LIDO1ADH93 TD; -LIDO5DIS41 TD
== END ==
LOC: M WHC 12:52
PROVIDERS: ATTEND Nurse Practitioner Family
DX: Z12.31 Encounter for screening mammogram for malignant neoplasm of breast (principal); R92.313 Mammographic fatty tissue density, bilateral breasts

== ENCOUNTER → 2025-05-11 | Outpatient (CLI) | payer OTHER ==
[2025-05-11 19:20] LABS: BASO # 0.1 10^3/uL (0.0-0.2); BASO % 1.1 % (0.0-1.0); EOS # 0.1 10^3/uL (0.0-0.5); EOS % 1.7 % (0.0-3.0); LYMPH # 2.5 10^3/uL (1.5-5.0); LYMPH % 46.4 % (24.0-44.0); MONO # 0.5 10^3/uL (0.0-0.8); MONO % 9.8 % (2.0-8.0); NEUTROPHILS # 2.2 10^3/uL (1.5-8.5); NEUTROPHILS % 40.8 % (36.0-66.0); PLATELET COUNT, AUTOMATED 266 10^3/uL (150-450)
[2025-05-11 19:23] LABS: ALT/SGPT 26.0 U/L (7.0-40); AST/SGOT 25.0 U/L (<34); CALCIUM LEVEL 9.5 MG/DL (8.3-10.6); CARBON DIOXIDE LEVEL 28.0 MMOL/L (20-31); CHLORIDE LEVEL 108.0 MMOL/L (98-107); CREATININE FOR GFR 0.86 MG/DL (0.55-1.30); GLOMERULAR FILTRATION RATE 77.3 (>45); IRON (FE) 95.0 UG/DL (50-170); MAGNESIUM LEVEL 2.0 MG/DL (1.8-2.4); PERCENT SATURATION 32.5 % (13.2-45.0); POTASSIUM SERUM 4.7 MMOL/L (3.5-5.1); SODIUM LEVEL 146.0 MMOL/L (136-145)
[2025-05-11 19:27] LABS: FREE T4 1.26 NG/DL (0.89-1.76)
[2025-05-11 19:29] LABS: TOTAL 25(OH) VITAMIN D 63.7 NG/ML (20.0-100.0); VITAMIN B12 LEVEL 773.0 PG/ML (211-911)
[2025-05-17 15:23] LABS: LYME TOTAL ANTIBODY CIA <= 0.90 Index (<=0.90)
== END ==
LOC: M WUC 15:47
PROVIDERS: ATTEND Nurse Practitioner Family
DX: R53.83 Other fatigue (principal)

== ENCOUNTER → 2025-07-13 | Outpatient (REF) | payer OTHER | LOC: M LAB REF 16:53 | PROVIDERS: ATTEND Nurse Practitioner Family | DX: N39.0 Urinary tract infection, site not specified (principal); R35.0 Frequency of micturition ==